=== PATIENT | female | born 2000 | race Two or more races ===

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

== ENCOUNTER 2020-01-04 11:59 | Emergency (ER) | payer SELFPAY ==
--- NOTE | 2020-01-04 12:58 | EDM.PDOC ---
ED HPI GENERAL MEDICAL PROBLEM - General Chief Complaint: Chest Pain Stated Complaint: SOB,CHEST PAIN SENT BY MEREDITH Time Seen by Provider: 01/04/20 12:55 Source of Information: Reports: Patient, RN Notes Reviewed - History of Present Illness INITIAL COMMENTS - FREE TEXT/NARRATIVE: 19 yr old healthy female with onset of mid chest discomfort a few hrs ago, now better. No radiation. Has not been ill recently. She had covid a couple of month ago. No cough, fever or difficulty breathing. Chest Pain Score (Numeric/FACES): 3 - Related Data Allergies Allergy/AdvReac Type Severity Reaction Status Date / Time No Known Allergies Allergy Verified 08/24/17 17:04 Home Meds: Home Meds . [No Known Home Meds] 01/04/20 [History] Past Medical History - Past Health History Medical/Surgical History: Denies Medical/Surgical History Neurological History: Reports: Other (See Below) Other Neuro History: frequent headaches about q 2 weeks Social & Family History - Caffeine Use Caffeine Use: Reports: Tea - Living Situation & Occupation Living situation: Reports: with Family Occupation: Student (10th grade) ED ROS GENERAL - Review of Systems Review Of Systems: See Below Constitutional: Denies: Fever, Chills, Diaphoresis HEENT: Reports: No Symptoms Respiratory: Denies: Shortness of Breath, Wheezing, Cough Cardiovascular: Reports: Chest Pain GI/Abdominal: Denies: Abdominal Pain, Nausea, Vomiting Musculoskeletal: Reports: No Symptoms Skin: Reports: No Symptoms Neurological: Reports: No Symptoms ED EXAM, GENERAL - Physical Exam Exam: See Below General Appearance: Alert, No Apparent Distress Head: Atraumatic Neck: Supple Respiratory/Chest: No Respiratory Distress, Lungs Clear, Normal Breath Sounds, Chest Non-Tender Cardiovascular: Regular Rate, Rhythm GI/Abdominal: Soft, Non-Tender. No: Guarding Extremities: Normal Inspection. No: Pedal Edema, Leg Pain, Increased Warmth, Redness Neurological: Alert, Oriented, No Motor/Sensory Deficits Skin Exam: Warm, Dry, Normal Color #1 Interpretation EKG Date: 01/04/20 Rhythm: NSR P-Wave: Present QRS: Normal ST-T: Normal Course - Vital Signs Last Recorded V/S: Last Vital Signs Temp 98.7 F 01/04/20 12:46 Pulse 86 01/04/20 13:35 Resp 16 01/04/20 13:35 BP 112/88 01/04/20 13:35 Pulse Ox 99 01/04/20 13:35 Departure - Departure Time of Disposition: 13:06 Disposition: Home, Self-Care 01 Condition: Fair Clinical Impression: Atypical chest pain - Discharge Information Instructions: Nonspecific Chest Pain, Adult, [id number] Referrals: PCP,None [Primary Care Provider] - Forms: ED Department Discharge Additional Instructions: Your EKG, cardiac and lung exam normal today. You may alternate tylenol and ibuprofen or aleve if needed for discomfort. Alternate ice and heat as needed. Follow up clinic if not back to normal within 2 to 3 days as expected. Return to ED as needed. Sepsis Event Note (ED) - Evaluation Sepsis Screening Result: No Definite Risk
[2020-01-04 13:44] VITALS: BP 112/88; PULSE 86
== END 2020-01-04 13:40 | disposition home or self-care (01) ==
LOC: JD.ED 11:59
DX: R07.89 Other chest pain (principal)
CPT/HCPCS: 93005; 93010; 99283; 99284-25

== ENCOUNTER 2020-02-28 14:32 | Emergency (ER) | payer SELFPAY ==
[2020-02-28 14:52] VITALS: BP 113/72; PULSE 98
[2020-02-28] MEDS ORDERED: Lidocaine 1% 10 ML MDV INJECT ONE (15:10)
--- NOTE | 2020-02-28 15:16 | EDM.PDOC ---
ED HPI GENERAL MEDICAL PROBLEM - General Chief Complaint: Laceration Stated Complaint: L POINTER FINGER LAC Time Seen by Provider: 02/28/20 14:45 Source of Information: Reports: Patient, RN Notes Reviewed History Limitations: Reports: No Limitations - History of Present Illness INITIAL COMMENTS - FREE TEXT/NARRATIVE: Patient is a 19-year-old female who presents to the ED for a left pointer finger laceration. Patient notes she was trying to cut open a bag of chips with a sharp knife, and ended up slipping and slicing the top portion of her left index finger. This resulted in a roughly 1 cm laceration fairly linear to the distal fingertip. Patient has no tendon injury apparent and has no numbness and tingling. Patient denies any other sick-like symptoms, fever/chills, cough/shortness of breath, nausea/vomiting/diarrhea. Patient is up-to-date on vaccinations. Treatments DOOR PERSON: Reports: Other (see below) Other Treatments DOOR PERSON: pressure dressing Left Finger-Index Pain Score (Numeric/FACES): 5 - Related Data Allergies Allergy/AdvReac Type Severity Reaction Status Date / Time No Known Allergies Allergy Verified 08/24/17 17:04 Home Meds: Home Meds . [No Known Home Meds] 01/04/20 [History] Past Medical History - Past Health History Medical/Surgical History: Denies Medical/Surgical History HEENT History: Reports: Impaired Vision Other HEENT History: wears eyeglasses. Cardiovascular History: Reports: Other (See Below) Other Cardiovascular History: random chest pains for several years, unknown etiology. Neurological History: Reports: Headaches, Chronic, Other (See Below) Other Neuro History: frequent headaches about q 2 weeks - Infectious Disease History Infectious Disease History: Reports: Chicken Pox Social & Family History - Tobacco Use Tobacco Use Status *Q: Never Tobacco User - Caffeine Use Caffeine Use: Reports: Soda - Recreational Drug Use Recreational Drug Use: No - Living Situation & Occupation Living situation: Reports: with Family Occupation: Student (10th grade) ED ROS GENERAL - Review of Systems Review Of Systems: Comprehensive ROS is negative, except as noted in HPI. ED EXAM, SKIN/RASH Exam: See Below Exam Limited By: No Limitations General Appearance: Alert, WD/WN, No Apparent Distress Respiratory/Chest: No Respiratory Distress, Lungs Clear, Normal Breath Sounds, No Accessory Muscle Use, Chest Non-Tender Cardiovascular: Normal Peripheral Pulses, Regular Rate, Rhythm, No Edema Peripheral Pulses: 2+: Radial (L), Radial (R) Extremities: Normal Range of Motion, Normal Capillary Refill Neurological: Alert, Oriented, Normal Cognition, No Motor/Sensory Deficits Psychiatric: Normal Affect, Normal Mood Skin: Warm, Dry, Normal Color, No Rash, Wound/Incision (1 cm linear laceration to the distal left index fingertip, does not involve the nail.) ED SKIN PROCEDURES - Laceration/Wound Repair Left Distal Digit - 2nd (Index) Appearance: Subcutaneous, Clean Distal NVT: Neuro & Vascular Intact, No Tendon Injury Anesthetic Type: Local Local Anesthesia - Lidocaine (Xylocaine): 1% Plain Local Anesthetic Volume: 3cc Exploration/Debridement/Repair: Wound Explored, In a Bloodless Field, Explored to Base, No Foreign Material Found Closed with: Sutures Lac/Wound length In cm: 1 Suture Size: 4-0 # of Sutures: 5 Suture Type: Prolene, Interrupted, Simple Sterile Dressing Applied: Nurse Tetanus Status Addressed: Yes Complications: No Course - Vital Signs Last Recorded V/S: Last Vital Signs Temp 98.2 F 02/28/20 14:51 Pulse 98 02/28/20 14:51 Resp 20 02/28/20 14:51 BP 113/72 02/28/20 14:51 Pulse Ox 99 02/28/20 14:51 - Orders/Labs/Meds Meds: Medications Discontinued Medications Generic Name Dose Route Start Last Admin Trade Name Davideq PRN Reason Stop Dose Admin Lidocaine HCl 10 ml 02/28/20 15:10 02/28/20 15:15 Xylocaine 1% INJECT 02/28/20 15:11 10 ml ONETIME ONE Administration Departure - Departure Time of Disposition: 15:13 Disposition: Home, Self-Care 01 Condition: Good Clinical Impression: Laceration of left index finger Qualifiers: Encounter type: initial encounter Damage to nail status: without damage Foreign body presence: without foreign body Qualified Code(s): S61.211A - Laceration without foreign body of left index finger without damage to nail, initial encounter - Discharge Information *PRESCRIPTION DRUG MONITORING PROGRAM REVIEWED*: No *COPY OF PRESCRIPTION DRUG MONITORING REPORT IN PATIENT [email or web address]: No Instructions: Sutures, [place], or Adhesive Wound Closure, [id number] Referrals: PCP,None [Primary Care Provider] - Forms: ED Department Discharge Additional Instructions: You have been evaluated in the ED for your laceration. Sutures will need to stay in for 10 to 14 days. You may return to the ED or any clinic for removal. Please keep this area clean and dry, you may cleanse with regular soap and water. No vigorous scrubbing. Please try to avoid submerging the affected area in water for prolonged periods of time until the sutures are removed. Watch out for signs of infection like increased redness, swelling, pain at the laceration site, or if you should develop any fevers or chills. Please return to ED if your symptoms change or worsen. Sepsis Event Note (ED) - Evaluation Sepsis Screening Result: No Definite Risk - Focused Exam Vital Signs: Vital Signs Temp Pulse Resp BP Pulse Ox 02/28/20 14:51 98.2 F 98 20 113/72 99
== END 2020-02-28 16:00 | disposition home or self-care (01) ==
LOC: JD.ED 14:32
DX: S61.211A Laceration without foreign body of left index finger without damage to nail, initial encounter (principal); W26.0XXA Contact with knife, initial encounter
CPT/HCPCS: 12001; 99282; J2001